=== PATIENT | female | born 1985 | race Caucasian/White ===

== ENCOUNTER 2018-08-29 06:42 | Emergency (ER) | payer MEDICAID, OTHER ==
[2018-08-29 06:57] VITALS: BP 139/73
--- NOTE | 2018-08-29 07:36 | ED Physician Documentation ---
PD HPI UPPER EXT INJURY - Stated complaint Stated Complaint: WRIST/ARM PX - Chief complaint Chief Complaint: Ext Problem - History obtained from History obtained from: Patient - History of Present Illness Location: Left, Forearm Type of injury: Other (rope entanglement) Where injury occurred: Work Timing - onset: How many days ago (2) Timing - details: Still present Worsened by: Moving, Palpating Associated symptoms: Swelling. No: Weakness, Numbness Similar symptoms before: Has not had sx before - Treatment prior to arrival Treatment prior to arrival: Aleve and Ibuprophen without relief. - Additonal information Additional information: The patient is a 33-year-old female who works at [employer], and presents with left wrist/distal forearm pain. The pain started 2 days ago after she got her wrist entangled in stiff rope while at work. She has been using Aleve and ibuprofen without relief. She denies any other injuries. She is right-hand dominant. Review of Systems Constitutional: denies: Fever Nose: denies: Congestion Respiratory: denies: Dyspnea Skin: denies: Rash Musculoskeletal: reports: Extremity pain (left distal forearm.) Neurologic: denies: Focal weakness, Numbness PD PAST MEDICAL HISTORY - Past Medical History Past Medical History: No Cardiovascular: None Respiratory: None Endocrine/Autoimmune: None GI: None OPERATIONS LIEUTENANT: None : None HEENT: None Psych: None Musculoskeletal: None Derm: None - Past Surgical History Past Surgical History: No - Present Medications Home Medications: Ambulatory Orders Medication Instructions Recorded Confirmed Hydrocodone/Acetaminophen 1 - 2 each PO Q6H PRN #15 tablet 09/07/14 [Hydrocodon-Acetaminophen 5-325] Ibuprofen [Motrin] 600 mg PO DAILY 09/07/14 09/07/14 Cephalexin [Keflex] 500 mg PO Q6HR 10 Days capsule 12/20/14 - Allergies Allergies/Adverse Reactions: Allergies Allergy/AdvReac Type Severity Reaction Status Date / Time No Known Drug Allergies Allergy Verified 12/20/14 17:41 - Social History Does the pt smoke?: Yes Smoking Status: Current every day smoker Does the pt drink ETOH?: Yes Does the pt have substance abuse?: No - Immunizations Immunizations are current?: No Immunizations: TDAP >10years/unknown PD ED PE NORMAL - Vitals Vital signs reviewed: Yes (Borderline systolic hypertension initially.) - General General: Alert and oriented X 3, Well developed/nourished - HEENT HEENT: Atraumatic - Respiratory Respiratory: No respiratory distress - Derm Derm: No rash - Extremities Extremities: Other (There is swelling of the left distal forearm along the radial aspect, with associated tenderness to palpation. There is no warmth or erythema. She has full range of motion of the wrist and elbow. Distal neurovascular is intact.) - Neuro Neuro: Alert and oriented X 3, No motor deficit, No sensory deficit Results - Vitals Vitals: Oxygen O2 Source Room air - Rads (name of study) Left forearm Radiology: Prelim report reviewed, EMP read contemporaneously, See rad report (Normal forearm radiography.) PD MEDICAL DECISION MAKING - ED course Complexity details: re-evaluated patient, considered differential, d/w patient, other (An L & I form was completed.) ED course: The patient's presentation is significant for contusion to the left distal forearm. X-ray reveals no evidence of bony abnormality. Her exam does not suggest infectious etiology. Treatment in the emergency department included administration of ibuprofen 800 mg orally. I discussed with her the expected course of injury, symptomatic treatment and outpatient follow-up, as well as potentially worrisome signs or symptoms that should prompt reevaluation in the emergency department. Departure - Departure Disposition: 01 Home, Self Care Clinical Impression: Contusion of left forearm Qualifiers: Encounter type: initial encounter Qualified Code(s): S50.12XA - Contusion of left forearm, initial encounter Condition: Stable Instructions: ED Contusion Upper Ext Follow-Up: [facility] [Provider Group] Comments: Keep your left hand elevated as much of the time as possible. Apply ice pack intermittently for the next 2 days. You can use ibuprofen, up to 800 mg 3 times daily for its anti-inflammatory effect. Let pain be your guide to activity level. Follow-up with primary physician within 2 weeks if not completely resolved. Return to the emergency department if you develop increasing pain or swelling, or otherwise worsening symptoms. Forms: Activity restrictions Discharge Date/Time: 08/29/18 09:00
--- NOTE | 2018-08-29 08:02 | XRAY Report ---
Reason: left distal forearm injury Procedure Date: 08/29/2018 Accession Number: [id number] / [id number] Procedure: XR - Forearm LT CPT Code: FULL RESULT: EXAM: LEFT FOREARM RADIOGRAPHY EXAM DATE: 08/29/2018 07:37 AM. CLINICAL HISTORY: Left distal forearm injury. COMPARISON: None. TECHNIQUE: 2 views. FINDINGS: Bones: Normal. No fractures or bone lesions. Joints: Normal. No effusions or subluxations in the visualized wrist or elbow joints. Soft Tissues: Soft tissue swelling. IMPRESSION: Normal forearm radiography. [facility]
[2018-08-29] MEDS ORDERED: IBUPROFEN 800 MG TABLET PO STA (08:10)
== END 2018-08-29 09:00 | disposition home or self-care (01) ==
LOC: ED 06:42
DX: S50.12XA Contusion of left forearm, initial encounter (principal); W23.0XXA Caught, crushed, jammed, or pinched between moving objects, initial encounter; Y99.0 Civilian activity done for income or pay; F17.200 Nicotine dependence, unspecified, uncomplicated
CPT/HCPCS: 1040M; 73090; 99282; 99283; A9270

== ENCOUNTER 2019-09-29 13:17 | Outpatient (CLI) | payer MEDICAID ==
[2019-09-29 13:40] LABS: BASOPHILS % (AUTO) 0.8 %; EOSINOPHILS # (AUTO) 0.2 10^3/uL (0.0-0.7); HGB - HEMOGLOBIN 13.3 g/dL (12.0-16.0); LYMPHOCYTES # (AUTO) 1.1 10^3/uL (1.5-3.5); LYMPHOCYTES % (AUTO) 21.6 %; MEAN CORPUSCULAR HEMOGLOBIN 31.4 pg (27.0-31.0); MEAN CORPUSCULAR HGB CONC 32.6 g/dL (32.0-36.0); MEAN CORPUSCULAR VOLUME 96.5 fL (81.0-99.0); MEAN PLATELET VOLUME 10.1 fL (7.9-10.8); MONOCYTES # (AUTO) 0.5 10^3/uL (0.0-1.0); MONOCYTES % (AUTO) 10.7 %; NEUTROPHILS # (AUTO) 3.1 10^3/uL (1.5-6.6); NEUTROPHILS % (AUTO) 63.3 %; PLT - PLATELET COUNT 173 10^3/uL (130-450); RED BLOOD COUNT 4.23 10^6/uL (4.20-5.40); RED CELL DISTRIBUTION WIDTH 13.2 % (12.0-15.0)
[2019-09-29 13:56] LABS: CREATININE 1.2 mg/dL (0.4-1.0)
[2019-09-29 14:13] LABS: BILIRUBIN,URINE NEGATIVE (NEGATIVE); GLUCOSE, URINE (UA) NEGATIVE (NEGATIVE); KETONES,URINE (UA) NEGATIVE (NEGATIVE); LEUKOCYTE ESTERASE, URINE NEGATIVE (NEGATIVE); NITRITE,URINE NEGATIVE (NEGATIVE); OCCULT BLOOD,URINE NEGATIVE (NEGATIVE); PROTEIN,URINE NEGATIVE (NEGATIVE); UROBILINOGEN,URINE 0.2 (NORMAL) E.U./dL (NORMAL)
[2019-09-29 14:17] LABS: CLARITY,URINE CLEAR (CLEAR)
== END 2019-09-29 13:18 | disposition home or self-care (01) ==
LOC: LAB 13:17
PROVIDERS: ATTEND Family Medicine
DX: R10.9 Unspecified abdominal pain (principal); R68.83 Chills (without fever)
CPT/HCPCS: 36415; 80048; 81001; 81003; 85025; 87086

== ENCOUNTER 2019-12-10 12:33 | Outpatient (CLI) | payer MEDICAID ==
--- NOTE | 2019-12-10 13:59 | XRAY Report ---
PROCEDURE: Lumbar Spine 2 View INDICATIONS: LATE EFFECT OF FRACTURE OF LUMBAR VERTEBRA TECHNIQUE: 2 views of the lumbar spine were acquired. COMPARISON: None. FINDINGS: Bones: 5 [id number] vertebrae are present. There is normal bony alignment. There is a L1 super ior endplate the upper endplate appears impacted inferiorly but there is only a slight degree of ante rior vertebral body height reduction. Accurate assessment for retropulsion of the posterior L1 verteb ral body into the spinal canal is not established by this examination. Vertebral body compression fra ctures. No suspicious bony lesions. Soft tissues: Overlying bowel gas pattern is normal. No suspicious soft tissue calcifications. IMPRESSION: Definite mild to moderate compression fracture involving L1 predominantly apparently inv olving the upper endplate which appears impacted inferiorly. Accurate assessment for presence or abse nce of retropulsion of the posterior L1 vertebral body into the spinal canal is not available from is study. CT scanning may be warranted versus MR scanning depending on the clinical status of the pat ient to more accurately assess the extent of injury in this circumstance. Reviewed by: Rob Prasad MD on 12/10/2019 1:58 PM PDT Approved by: Rob Prasad MD on 12/10/2019 1:58 PM PDT Station ID: [id number]
== END 2019-12-10 12:34 | disposition home or self-care (01) ==
LOC: DI 12:33
PROVIDERS: ATTEND Family Medicine
DX: S32.009S Unspecified fracture of unspecified lumbar vertebra, sequela (principal)
CPT/HCPCS: 72100